=== PATIENT | male | born 1940 | race Caucasian/White ===

== ENCOUNTER 2024-10-08 10:52 | Emergency (ER) | payer MEDICARE ==
[~2024-10-08] VITALS: Ht 165.1 cm; Wt 68.0 kg
[~2024-10-08 10:52] MED LIST: CARB1TAB35 PO; MIDO5TAB5 PO; ROSU10TA72 PO
[2024-10-08 11:04] VITALS: TEMP 98.6
[2024-10-08 12:29] VITALS: BP 138/82; PULSE 85; RESP 18; O2SAT 96
== END 2024-10-08 13:00 | disposition home or self-care (01) ==
LOC: EMS 10:52
DX: S09.90XA Unspecified injury of head, initial encounter (principal); M54.2 Cervicalgia; E78.00 Pure hypercholesterolemia, unspecified; G20.A1 Parkinson's disease without dyskinesia, without mention of fluctuations; W19.XXXA Unspecified fall, initial encounter; Y93.89 Activity, other specified; Y92.89 Other specified places as the place of occurrence of the external cause; Y99.8 Other external cause status
CPT/HCPCS: 99283; Z7502